=== PATIENT | male | born 1970 | race African-American/Black ===

== ENCOUNTER 2020-02-23 19:55 | Emergency (ER) | payer MEDICAID ==
[~2020-02-23] VITALS: Ht 177.8 cm; Wt 66.8 kg
[2020-02-23 20:22] VITALS: BP 114/74
== END 2020-02-23 21:10 | disposition home or self-care (01) ==
LOC: EMS 19:55
DX: R53.1 Weakness (principal); Z59.0 Homelessness; F17.210 Nicotine dependence, cigarettes, uncomplicated

== ENCOUNTER 2023-10-31 10:53 | Emergency (ER) | payer MEDICAID ==
[~2023-10-31] VITALS: Ht 177.8 cm; Wt 78.0 kg
[2023-10-31 11:01] VITALS: TEMP 98.3
[2023-10-31 11:02] VITALS: BP 113/79; PULSE 92; RESP 16
== END 2023-10-31 11:58 | disposition home or self-care (01) ==
LOC: EMS 10:58
DX: R53.1 Weakness (principal); Z88.5 Allergy status to narcotic agent; Z59.00 Homelessness unspecified
CPT/HCPCS: 99283; Z7502